=== PATIENT | male | born 1945 | race Caucasian/White ===

== ENCOUNTER → 2018-05-03 11:27 | Outpatient (CLI) | payer MEDICARE, OTHER, SELFPAY ==
--- NOTE | 2018-05-03 11:38 | EKG12_ITS ---
Test Reason : PRE OP Blood Pressure : / mmHG Vent. Rate : 064 BPM Atrial Rate : 064 BPM P-R Int : 212 ms QRS Dur : 116 ms QT Int : 414 ms P-R-T Axes : 035 -39 -01 degrees QTc Int : 427 ms Sinus rhythm with 1st degree A-V block Left axis deviation Abnormal ECG Confirmed by ASAEL GREEN, PARI ([id number]), marketing editor TUTU GARCIA ([id number] on 05/04/2018 4:01:50 PM Referred By: Tarik Wright Confirmed By:PARI VYAS MD
[2018-05-03 12:35] LABS: Hematocrit 43.2 % (40-54); Hemoglobin 14.7 g/dl (13.0-16.5); Mean Corpuscular Hgb 31.4 pg (27.0-32.0); Mean Corpuscular Volume 92.3 fL (80-94); Mean Platelet Vol. 12.2 fl (6.2-12.0); Platelet Count 152 K/mm3 (150-450); RBC Distribution Width CV 12.9 % (11.6-14.6); RBC Distribution Width SD 42.6 fl (35.1-43.9); Red Blood Count 4.68 M/mm3 (4.6-6.2); White Blood Count 5.7 K/mm3 (4.4-11.0)
[2018-05-03 12:37] LABS: Scan Indicated on CBC? Y/N NO
[2018-05-03 12:57] LABS: Anion Gap 8 (5-15); BUN 17 mg/dL (7-18); BUN/Creat Ratio 14.9 RATIO (10-20); Calcium,Total 9.1 mg/dL (8.5-10.1); Chloride 108 mmol/L (98-107); Creatinine, Serum 1.14 mg/dL (0.70-1.30); EST Glomerular Filtration Rate 67 mL/min (>60); Est Glom Filt Rate - Afr Amer 81 mL/min (>60); Glucose 84 mg/dL (74-106); Potassium 3.8 mmol/L (3.5-5.1); Sodium Level 143 mmol/L (136-145)
--- OUTSIDE RECORDS SUMMARY | 2018-07-08 07:41 | XMS RPT_ITS ---
:1945 Author Organization OHIP Care Team Providers Name Role Phone Tarik Wright Attending Unavailable Dylan Wrightun Referring Unavailable SANDOVALSIDER O Primary Care Unavailable Tarik Wright Attending Unavailable Adriana, Tarik Referring Unavailable SANDOVAL, CRISTIANO O Primary Care Unavailable Voss, Trina D Attending Unavailable Sandoval, Cristiano Primary Care Unavailable Voss, Trina D Admitting Unavailable Kiana, Trina D Admitting Unavailable Voss, Trina D Attending Unavailable Sandoval, Cristiano Primary Care Unavailable Voss, Trina D Admitting Unavailable Voss, Trina D Attending Unavailable Sandvoal, Cristiano Primary Care Unavailable Denisse, Neptali Attending Unavailable Sandoval, Cristiano Primary Care Unavailable Tourlas, Neptali Admitting Unavailable Jtlas, Neptali Attending Unavailable Sandoval, Cristiano Primary Care Unavailable Sandoval, Cristiano Attending Unavailable Sandoval, Cristiano Primary Care Unavailable Sandoval, Cristiano Admitting Unavailable Ángel Jones Attending Unavailable Sandoval, Cristiano Primary Care Unavailable SandovalSider Attending Unavailable Sandoval, Cristiano Primary Care Unavailable Sandoval, Cristiano Admitting Unavailable Sandoval, Cristiano Admitting Unavailable SandovalSider Attending Unavailable Sandoval, Cristiano Primary Care Unavailable Sandoval, Cristiano Primary Care Unavailable Rings, Charlie Admitting Unavailable Rings, Charlie Attending Unavailable Sandoval, Cristiano Attending Unavailable Sandoval, Cristiano Primary Care Unavailable Sandoval, Cristiano Attending Unavailable Sandoval, Cristiano Primary Care Unavailable Sandoval, Cristiano Admitting Unavailable Sandoval, Cristiano Attending Unavailable Sandoval, Cristiano Primary Care Unavailable ELI CORONA Attending Unavailable ELI CORONA Referring Unavailable TOURLAS, NEPTALI Admitting Unavailable RACHELL MILAN Attending Unavailable TOURLAS, NEPTALI Referring Unavailable TOURLAS, NEPTALI Primary Care Unavailable PROBLEMS PROBLEMS DATE TYPE CONDITION / CODE ATTENDING STATUS SOURCE 09/13/2017 Admitting Anesthesia of RACHELL MILAN [facility] diagnosis skin / Three Repository R20.0(ICD-10) 09/13/2017 Admitting Pain, unspecified RACHELL MILAN [facility] diagnosis / R52(ICD-10) Three Repository PROCEDURES PROCEDURES No Procedure Records FoundRESULTS RESULTS 12 LEAD ELECTROCARDIOGRAM Observed: 05/04/2018 Status: F Source: [place] 4:02 PM [facility] REPOSITORY [facility] Cardiovascular Services [address] [place] [id number] 12 Lead EKG 05/03/18 1142 MR#: [id number] Acct: [id number] Name: PK ELLISON Rep #: [id number] : 1945 72 From: Regan Vyas MD Attending Dr: Tarik Wright MD Status: REG CLI Ordering Dr: Tarik Wright MD Date: 05/03/18 Location: [facility] Sex: M C Admitted: Test Reason : PRE OP Blood Pressure : / mmHG Vent. Rate : 064 BPM Atrial Rate : 064 BPM P-R Int : 212 ms QRS Dur : 116 ms QT Int : 414 ms P-R-T Axes : 035 -39 -01 degrees QTc Int : 427 ms Sinus rhythm with 1st degree A-V block Left axis deviation Abnormal ECG Confirmed by ASAEL GREEN, REGAN ([id number]), production editor TUTU GARCIA ([id number]) on 05/04/2018 4:01:50 PM Referred By: Tarik Wright Confirmed By:REGAN VYAS MD 05/04/18 1601 Date Regan Vyas MD CC: Tarik Wright MD; Cristiano Sandoval MD Signed CBC-COMPLETE BLOOD CNT Collected: 05/03/2018 Status: F Source: [place] NO DIFF 11:52 AM [facility] REPOSITORY TYPE CODE TESTS RESULT OUT OF RANGE REFERENCE UNITS LAB L100.1000 4.4-11.0 K/mm3 Normal WBC 5.7 LAB L100.1200 4.6-6.2 M/mm3 Normal RBC 4.68 LAB L100.1300 13.0-16.5 g/dl Normal HGB 14.7 LAB L100.1400 40-54 % Normal HCT 43.2 LAB L100.1500 80-94 fL Normal MCV 92.3 LAB L100.1600 27.0-32.0 pg Normal MCH 31.4 LAB L100.1700 32-36 g/gl Normal MCHC 34.0 LAB L100.1810 11.6-14.6 % Normal RDW CV 12.9 LAB L100.1820 35.1-43.9 fl Normal RDW SD 42.6 LAB L100.1900 150-450 K/mm3 Normal PLT 152 LAB L100.2000 6.2-12.0 fl High MPV 12.2 Performed By: #### L100.0500 #### [facility] [address] [place], [address] BASIC METABOLIC Collected: 05/03/2018 Status: F Source: [place] PROFILE (BMP) 11:52 AM [facility] REPOSITORY TYPE CODE TESTS RESULT OUT OF RANGE REFERENCE UNITS LAB L501.0100 74-106 mg/dL Normal GLU 84 Result Comment: Please note revised GLUCOSE reference range effective 2017. LAB L501.1000 7-18 mg/dL Normal BUN 17 LAB L501.1100 0.70-1.30 mg/dL Normal CREAT,SERUM 1.14 Result Comment: The validity of the calculated GFR AND GFRAA in patients over 70 years has not been determined. Clinical correlation is essential. LAB L501.1110 >60 mL/min Normal EST GFR 67 Result Comment: Non- GFR Calc LAB L501.1115 >60 mL/min Normal EST GFR - AA 81 Result Comment: GFR Calc LAB L501.1300 10-20 RATIO Normal BUN/CRE 14.9 LAB L501.2200 8.5-10.1 mg/dL CA Normal 9.1 LAB L501.5300 136-145 mmol/L NA Normal 143 LAB L501.5600 3.5-5.1 mmol/L K Normal 3.8 LAB L501.5900 98-107 mmol/L High CL 108 LAB L501.6100 21.0-32.0 mmol/L Normal CO2 27.0 LAB L501.6200 5-15 Normal GAP 8 Performed By: #### L500.2500 #### [facility] [address] [place], [address] CTA CHEST Observed: 01/13/2018 Status: F Source: [place] 6:20 AM [facility] REPOSITORY Exam Date/Time: 01/13/2018 06:39 EDT Reason for Exam: Elevated D-Dimer Report STUDY: CTA Chest; 01/13/2018 6:39 am INDICATION: Elevated D-Dimer. COMPARISON: None. ACCESSION NUMBER(S): [id number] ORDERING CLINICIAN: Charlie Colvin TECHNIQUE: Axial CT images of the chest obtained after intravenous administration of 100 mL Omnipaque 350. Maximum intensity projection images were created and reviewed. FINDINGS: VESSELS: Aorta and pulmonary artery are normal caliber. Atherosclerotic calcifications in the aorta and coronary arteries. No pulmonary embolism. HEART: Normal size. No pericardial effusion. MEDIASTINUM AND MARYAM: No pathologically enlarged lymph nodes. Small hiatal hernia. LUNG, PLEURA, AND LARGE AIRWAYS: No pleural effusion. No pulmonary consolidation. 13 mm ground- glass focus in the left upper lobe. CHEST WALL AND LOWER NECK: Within normal limits. UPPER ABDOMEN: No acute abnormality of the partially visualized abdomen. BONES: Thoracic degenerative disc changes. IMPRESSION: No pulmonary embolism. Left upper lobe infectious or inflammatory infiltrate versus ground-glass nodule. Follow-up chest CT in 3-6 months is recommended to assess for resolution. FINAL REPORT Dictated: 01/13/2018 6:51 am Vickie Tovar MD Signed (Electronic Signature): 01/13/2018 6:51 am Signed by: Vickie Tovar MD Technologist: MATTY TROPONIN-I Collected: 01/13/2018 Status: F Source: [place] 5:55 AM [facility] REPOSITORY TYPE CODE TESTS RESULT OUT OF RANGE REFERENCE UNITS LAB [id number](LO .00-.03 ng/mL INC) Normal <.01 Troponin-I Performed By: #### [id number] #### [facility] [employer] [address] [place] [address] CBC W/ AUTO DIFF Collected: 01/13/2018 Status: F Source: [place] 3:07 AM [facility] REPOSITORY TYPE CODE TESTS RESULT OUT OF RANGE REFERENCE UNITS LAB 15341199(L 3.6-11.0 E3/mcL OINC) Normal WBC 5.4 LAB 88081240(L 3.90-6.10 E6/mcL OINC) Normal RBC 4.41 LAB 99898012(L 13.5-18.0 G/DL OINC) Normal Hgb 13.7 LAB 14157057(L 42.0-52.0 % OINC) Low Hct 41.0 LAB 69992986(L 11.5-14.5 % OINC) Normal RDW 13.7 LAB 82144373(L 27.0-31.0 pg OINC) High MCH 31.1 LAB 77245448(L 33.0-37.0 G/DL OINC) Normal MCHC 33.4 LAB 32904514(L 78.0-100.0 fL OINC) Normal MCV 93.0 LAB 56644467(L 7.4-11.0 fL OINC) Normal MPV 9.5 LAB 42630212(L 130-400 E3/mcL OINC) Normal Platelet 152 Performed By: #### [id number] #### [facility] [employer] [address] [place] [address] AUTO DIFF Collected: 01/13/2018 Status: F Source: [place] 3:07 AM [facility] REPOSITORY Order Comment: Order Added by Discern Expert. TYPE CODE TESTS RESULT OUT OF RANGE REFERENCE UNITS LAB 88504793(L 37.0-75.0 % OINC) Normal Neutro Auto 60.2 LAB 94789033(L 20.0-55.0 % OINC) Normal Lymph Auto 25.0 LAB 51139601(L 0.0-10.0 % OINC) High [place] Auto 10.1 LAB 93856740(L 0.0-11.0 % OINC) Normal Eos Auto 3.9 LAB 46477535(L 0.0-2.0 % OINC) Normal Basophil Auto 0.8 LAB 43290955(L 1.4-6.5 E3/mcL OINC) Normal Neutro 3.3 Absolute LAB 53035633(L 1.2-3.4 E3/mcL OINC) Normal Lymph Absolute 1.4 LAB 56084322(L 0.0-0.7 E3/mcL OINC) Normal [place] Absolute 0.5 LAB 84422031(L 0.0-0.7 E3/mcL OINC) Normal Eos Absolute 0.2 LAB 33063116(L 0.0-0.2 E3/mcL OINC) Normal Basophil 0.0 Absolute Performed By: #### [id number] #### [facility] [employer] [address] [place] [address] PT Collected: 01/13/2018 Status: F Source: [place] 3:07 AM [facility] REPOSITORY TYPE CODE TESTS RESULT OUT OF RANGE REFERENCE UNITS LAB 64179879(LO 1.0-1.2 INC) Normal INR 1.0 Result Comment: INR Recommended Therapeuptic Ranges: Prophylaxis/treatment of DVT and PE?2.0-3.0 Prevention of systemic embolism?.2.0-3.0 Mechanical prosthetic values?2.5-3.5 CRITICAL VALUES?.>4.0 LAB 05661340(LOINC) 11.6-14.6 second(s) Normal 12.7 PT Performed By: #### [id number] #### [facility] [address] [place] [address] CMP Collected: 01/13/2018 Status: F Source: [place] 3:07 AM [facility] REPOSITORY TYPE CODE TESTS RESULT OUT OF RANGE REFERENCE UNITS LAB 22520812(L 70-99 mg/dL OINC) High Glucose Lvl 107 LAB 26478083(L 7-18 mg/dL OINC) BUN Normal 13 LAB 5778987(LO 0.6-1.3 mg/dL INC) Normal Creatinine 0.8 LAB 28249480(L 8.4-10.2 mg/dL OINC) Calcium Normal Lvl 8.9 LAB 04920575(L 136-145 mEq/L OINC) Low Sodium Lvl 135 LAB 82966362(L 3.5-5.1 mEq/L OINC) Low Potassium Lvl 3.4 LAB 17874314(L 98-107 mEq/L OINC) Chloride Normal 101 LAB 12394602(L 24.0-30.0 mEq/L OINC) CO2 Normal 26.6 LAB 53414901(L 42-121 Int._Unit/ OINC) L Alk Phos Normal 55 LAB 88942904(L 0.2-1.0 mg/dL OINC) Bili Normal Total 0.5 LAB 82758409(L 3.2-5.0 G/DL OINC) Albumin Normal Lvl 3.7 LAB 60926640(L 6.4-8.3 G/DL OINC) Total Normal Protein 6.8 LAB 67356347(L 10-40 Int._Unit/ OINC) High L ALT 45 LAB 52538507(L 10-42 Int._Unit/ OINC) L AST Normal 33 LAB 39686757(L 5.4-30.0 ratio OINC) Normal BUN/Creat Ratio 16.2 LAB 56768040(L 2.0-4.0 G/DL OINC) Globulin Normal 3.1 LAB 07321246(L 1.1-1.9 ratio OINC) A/G Normal Ratio 1.2 Performed By: #### [id number] #### [facility] [employer] [address] [place], [place] [id number] EGFR Collected: 01/13/2018 Status: F Source: [place] 3:07 AM [facility] REPOSITORY Order Comment: Order added by Discern Expert. TYPE CODE TESTS RESULT OUT OF RANGE REFERENCE UNITS LAB 72650677(LO mL/min/1.73 INC) m2 Normal eGFR >60 LAB 31360761(LO mL/min/1.73 INC) m2 Normal eGFR AA >60 Performed By: #### [id number] #### [facility] [employer] [address] [place] [address] TROPONIN-I Collected: 01/13/2018 Status: F Source: [place] 3:07 AM [facility] REPOSITORY TYPE CODE TESTS RESULT OUT OF RANGE REFERENCE UNITS LAB 35459253(LO .00-.03 ng/mL INC) Normal .01 Troponin-I Performed By: #### [id number] #### [facility] [employer] [address] [place] [address] XR CHEST AP PORTABLE Observed: 01/13/2018 Status: F Source: [place] 3:05 AM [facility] REPOSITORY Exam Date/Time: 01/13/2018 03:17 EDT Reason for Exam: Difficulty breathing Report STUDY: XR Chest AP Portable; 01/13/2018 3:17 am INDICATION: Difficulty breathing. COMPARISON: None. ACCESSION NUMBER(S): [id number] ORDERING CLINICIAN: Charlie Colvin FINDINGS: The cardiac silhouette is normal in size. Low lung volume with mild bronchovascular crowding. Note made of azygos fissure. Left lung base atelectasis. No focal airspace consolidation or pleural effusion. No pneumothorax. The osseous structures are intact. IMPRESSION: No acute cardiopulmonary disease. FINAL REPORT Dictated: 01/13/2018 3:57 am Cornell Mcconnell MD Signed (Electronic Signature): 01/13/2018 3:57 am Signed by: Cornell Mcconnell MD Technologist: MATTY D-DIMER Collected: 01/13/2018 Status: F Source: [place] 2:52 AM [facility] REPOSITORY TYPE CODE TESTS RESULT OUT OF RANGE REFERENCE UNITS LAB 32622269(LO <=0.50 mg/L FEU INC) Abnormal Alert 1.18 D-Dimer Result Comment: Critical Result DIMER:1.18 Called to JACQUIE AKINS at: 05:52:49 by:POLY Read back by:JACQUIE AKINS Normal D Dimer level indicates no Deep Vein Thrombosis (DVT) or Pulmonary Embolism (PE). Elevated D Dimer level indicates additional studies and clinical assessments are indicated to conclude diagnosis of Deep Vein Thromobsis (DVT) or Pulmonary Embolism (PE). Performed By: #### [id number] #### [facility] [employer] [facility] [place] [address] IFOB OCCULT BLOOD Collected: 01/09/2018 Status: F Source: [place] 4:00 PM [facility] REPOSITORY TYPE CODE TESTS RESULT OUT OF RANGE REFERENCE UNITS LAB 586935054( LOINC) Normal Occult Negative Blood iFOB LAB CD:0527949 601(LOINC) Normal Occult Positive Bld iFOB Int Ctl Performed By: #### [id number] #### [facility] [employer] , PROGRESS Observed: 10/17/2017 Status: COMPLETED Source: [place] 4:09 PM [facility] REPOSITORY HNO ID: [id number] Author: Eli Corona Service: (none) Author Type: Physician Type: Progress Notes Filed: 10/17/2017 4:10 PM Note Text: Subjective HPI Pk Ellison is a 72 year old male who presents with sore on his ear.. Patient complains of intermittent sores and scabbing on the external ear. Patient states is worse presently on the right but does occur both ways. Patient has tried reformatting his pillows to avoid contact on his ears. Patient states is worse when he is sleeping. Patient states at times it seems to drain. Patient also complain of chronic nasal congestion which is also worse at night patient recently has been using CPAP and it makes it difficult to his nose is congested ROS General Weight loss: No Fatigue: No Night sweats:No Cardiac Chest pain:No Fast heart rate:No Swelling in the feet:No Respiratory Short of breath:No Cough:No Wheezing:No Gastrointestinal Nausea:No Vomiting:No Indigestion:No Past no history family history social history reviewed Objective Physical Exam PHYSICAL EXAM: There were no vitals taken for this visit. General: Patient is awake, alert, NAD. Voice is normal. Skin: normal Eyes: Extraocular motion and Gaze is normal. Ears: Right external auditory canal is normal. Scabbing external pinna right TMJ: normal. Right tympanic membranes normal. Left external auditory canal is normal. Left tympanic membrane normal. Nose: Septum is normal. Turbinates are normal. Nasopharynx:normal Oral Cavity/Oropharynx: Lips normal Dentition normal Tongue normal. Tonsils normal. Palate and uvula normal. Pharynx posterior normal Hypopharynx: Base of tongue normal Pyriform sinus normal. Larynx: Vocal cords normal. Epiglottis normal. Post cricoid normal. Salivary glands: Parotid normal. Submandibular and sublingual normal. Thyroid: normal. Lymphatic/Neck: Lymph nodes normal. Neurologic: Facial nerve normal. ASSESSMENT/PLAN: 1. Chronic rhinitis - ICD9: 472.0, ICD10: J31.0 (primary diagnosis) 2. 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 Patient complains of intermittent sores and scabbing on the external ear. Patient states is worse presently on the right but does occur both ways. Patient has tried reformatting his pillows to avoid contact on his ears. Patient states is worse when he is sleeping. Patient states at times it seems to drain. Patient also complain of chronic nasal congestion which is also worse at night patient recently has been using CPAP and it makes it difficult to his nose is congested ROS General Weight loss: No Fatigue: No Night sweats:No Cardiac Chest pain:No Fast heart rate:No Swelling in the feet:No Respiratory Short of breath:No Cough:No Wheezing:No Gastrointestinal Nausea:No Vomiting:No Indigestion:No Past no history family history social history reviewed Objective Physical Exam PHYSICAL EXAM: There were no vitals taken for this visit. General: Patient is awake, alert, NAD. Voice is normal. Skin: normal Eyes: Extraocular motion and Gaze is normal. Ears: Right external auditory canal is normal. Scabbing external pinna right TMJ: normal. Right tympanic membranes normal. Left external auditory canal is normal. Left tympanic membrane normal. Nose: Septum is normal. Turbinates are normal. Nasopharynx:normal Oral Cavity/Oropharynx: Lips normal Dentition normal Tongue normal. Tonsils normal. Palate and uvula normal. Pharynx posterior normal Hypopharynx: Base of tongue normal Pyriform sinus normal. Larynx: Vocal cords normal. Epiglottis normal. Post cricoid normal. Salivary glands: Parotid normal. Submandibular and sublingual normal. Thyroid: normal. Lymphatic/Neck: Lymph nodes normal. Neurologic: Facial nerve normal. ASSESSMENT/PLAN: 1. Chronic rhinitis - ICD9: 472.0, ICD10: J31.0 (primary diagnosis) 2. 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 right ear lesion drains. Present sx for 1 year. Has been to 3 other ENTs who found no problem. 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 Encounter Status:Closed by ELI CORONA MD on 10/17/17 XR HAND 3+ VIEWS Observed: 08/15/2017 Status: F Source: [place] LEFT 11:06 AM [facility] REPOSITORY Exam Date/Time: 08/15/2017 11:12 EDT Reason for Exam: thumb pain;Other (please specify) Report LEFT HAND 4 Views HISTORY: Thumb pain. FINDINGS: No fracture is seen. The metacarpals and phalanges are intact. The metacarpophalangeal and interphalangeal joints are normal. No radiopaque foreign body is seen in the soft tissues. IMPRESSION: No acute disease. No arthritic change. FINAL REPORT Dictated: 08/15/2017 3:44 pm Sean Morton MD Signed (Electronic Signature): 08/15/2017 3:44 pm Signed by: Sean Morton MD Technologist: [facility] XR HAND 3+ VIEWS Observed: 08/15/2017 Status: F Source: [place] RIGHT 11:06 AM [facility] REPOSITORY Exam Date/Time: 08/15/2017 11:12 EDT Reason for Exam: thumb pain;Other (please specify) Report RIGHT HAND-3 VIEWS: HISTORY: Thumb pain. FINDINGS: The metacarpophalangeal and interphalangeal joints are normal. The density of the bones is normal. There is a radiopaque density in the soft tissues of the distal phalanx of the fourth finger which may be a radiopaque foreign body, measuring about 8 mm in length and 3 mm in width. IMPRESSION: No acute abnormality. No fracture or dislocation. Radiopaque foreign body in the soft tissues of the distal phalanx of the fourth finger on the palmar aspect. FINAL REPORT Dictated: 08/16/2017 9:33 am Sean Morton MD Signed (Electronic Signature): 08/16/2017 9:33 am Signed by: Sean Morton MD Technologist: [facility] XR SPINE CERVICAL 4 Observed: 07/18/2017 Status: F Source: [place] OR 5 VIEWS 3:38 PM [facility] REPOSITORY Exam Date/Time: 07/18/2017 15:43 EDT Reason for Exam: Neck Pain Report CERVICAL SPINE-5 VIEWS HISTORY: Neck pain. No injury. FINDINGS: The cervical lordosis is maintained. There is slight narrowing of the C4-5 and C6-7 intervertebral disc spaces, more at the C6-7 level. The intervertebral neural foramina are normal in size. The odontoid process and atlantoaxial distance are normal. The facets are normal in alignment. IMPRESSION: Degenerative disc, at C6-C7 and to a lesser degree at C4-C5. No foraminal narrowing. FINAL REPORT Dictated: 07/18/2017 5:36 pm Sean Morton MD Signed (Electronic Signature): 07/18/2017 5:36 pm Signed by: Sean Morton MD Technologist: [facility] ALLERGIES ALLERGIES DATE TYPE / CODE NAME / CODE REACTION SEVERITY SOURCE Drug NO KNOWN [facility] Class/07480 ALLERGIES Main [place] 1003(SNOMED Repository CT) Drug NO KNOWN [facility] Class/98290 ALLERGIES [facility] 1003(SNOMED CT) Drug/256588 penicillins Shinto 003([facility] [place]) System Repository Drug/136251 Lipitor [id number] Shinto 003(OMED [facility]) System Repository Drug/804780 Vytorin [id number] Shinto 003([facility] [place]) System Repository ENCOUNTERS ENCOUNTERS ADMIT/DISCHARGE ACCOUNT NUMBER ADMITTING ENCOUNTER LOCATION SOURCE CLASS 05/10/2018 [id number] Ambulatory [facility] ding:[facility] Repository 05/04/2018 [id number] [facility] ding:[facility] rac Repository 05/03/2018 [id number] [facility] ding:[facility] Repository 04/04/2018/ [id number] Cristiano Sandoval [address] ding:[facility] System racRoom: Repository Room 1 03/20/2018/ [id number] Ambulatory [address] ding:[facility] System racRoom: Repository Room 2 01/13/2018/ [id number] Charlie Colvin [facility] 0[address] [facility] ding:[facility] EDRoom: WR System Repository 01/13/2018 [id number] Ambulatory [address] [facility] Repository 01/09/2018/ [id number] Cristiano Sandoval [address] ding:[facility] System Repository 01/09/2018 [id number] Ambulatory [address] [place] [address] Repository 12/30/2017/ [id number] Cristiano Sandoval Ambulatory [address] ding:[facility] System racRoom: Repository Room 3 11/16/2017/ [id number] Ambulatory [address] System ing:[facility] Repository nd 10/17/2017/ [id number] Ambulatory [address] Repository 09/23/2017/ [id number] Cristiano Sandoval [address] ding:[facility] System racRoom: Repository Room 2 09/13/2017/ [id number] DENISSE, Ambulatory Building:[address] Repository 08/15/2017/ [id number] Denisse, [address] ding: Health [facility] System Repository 08/10/2017/ [id number] Ambulatory [address] ding:[facility] System racRoom: Repository Room 1 07/29/2017/ [id number] Trina Bruno Ambulatory [facility] [address] [facility] ding[facility] Repository 07/18/2017/ [id number] Trina Bruno [facility] [address] [facility] ding:[facility] System Repository 07/11/2017/ [id number] Trina Bruno [facility] [address] [facility] ding:[facility] racRoom: Repository Room 1 PAYERS PAYERS ENCOUNTER GUARANTOR PAYER SUBSCRIBER SOURCE 05/10/2018 PK O Primary PK O Kiara [id number] Insurance:AETNA SR MCWILLIAMSDOB: Community [facility], SUPPLEMENT INSPolicy [id number] [place] [address]Uos: Number: Repository [id number] () Date:6409-57-44PJZHG [facility] SUPPLEMENT INSPO [address] [place] [address]PM: 05/10/2018 Secondary PK O Kiara Insurance:MEDICARE MCWILLDOLLYMSDOB: Community PART A BPolicy [id number] Hospital Number: Repository [id number] Date:2018-05-10 05/10/2018 Tertiary NOT GIVENUNK [place] Insurance:SELF PAY [facility] Hospital Number: Effective Repository Date:2018-05-10 05/04/2018 PK O Primary PK O Shinto ANÍBALLLIAMSDOB: Insurance:1500 MCWILLIAMSDOB: [facility] MEDICARE [id number] System [facility] Number: [facility] [place] [address]Yoo: Date:2018-05-04 [address]Zfd: [id number] ()Tel: ([phone]) Name:CD:[id number] O () (WP) [address] [address]KINLGLXUE, 000-0000 (WP) [place] [address]ZA: 05/04/2018 Secondary PK O Shinto Insurance:1500 AETNA CHASTITYB: [facility] LIFE INSURANCE [id number] System COMPANYPolicy Number: ROBERT BURTON, Repository Effective [place] Date:2018-05-0409457-0994Tym: 8162-02-94Ntdi Name:CD:[id number] O (HP)Tel: (000) [address] [address]RYNNMBXOC, 000-0000 () [place] [address]DS: 05/03/2018 PK O Primary PK O [place] [id number] Insurance:AETNA SR MCWILLIAMSDOB: [facility], SUPPLEMENT INSPolicy [id number] Hospital [place] [address]Onh: Number: Repository [id number] (HP) Date:7251-58-04HQSDI SENIOR SUPPLEMENT INSPO [address] [address]WJDXTCFKO, [place] [address]ZF: 05/03/2018 Secondary NOT GIVENUNK [place] Insurance:SELF PAY [facility] Number: Effective Repository Date:2018-05-03 04/04/2018 PK O Primary PK O Shinto MCILLLIAMSDOB: Insurance:1500 MCWILLIAMSDOB: [facility] MEDICARE [id number] System [facility] FR[facility]CHESCAPAUL A[facility] DE[facility] STATE SCHOOLPolic Number: [facility] [place], [facility] [place] [address]Ulr: Date:2018-03-2903274-8978Yoj: 0531-02-40Rtkc (HP)Tel: ([phone]) Name:CD:[id number] O (HP) (WP) [address] [address]DUXQXXZVP, 000-0000 (WP) [place] [address]EY: 04/04/2018 Secondary PK O Shinto Insurance:1500 AETNA MCRAJNILLIAMSDOB: [facility] LIFE INSURANCE [id number] System COMPANYPolicy Number: [facility], Repository [place] Date:2018-03-2939965-6[address]Mrk: 4013-59-39Kflf Name:CD:[id number] O (HP)Tel: (000) [address] [address]IUZPGJSBJ, 000-0000 (WP) [place] [address]SE: 03/20/2018 PK O Primary PK ELLISONDOB: Insurance:1500 MCILLLIAMSDOB: [facility] MEDICARE [id number] System [facility], PRIMARYPolicy Number: [facility] [place] [address]Xxj: Date:2018-03-20Tel: [id number] (HP)Tel: (409) Name:CD:[id number] O (HP) (WP) [address] [address]ZLGYBRGGP, 000-0000 (WP) [place] [address]VG: 03/20/2018 Secondary PK [place] Insurance:1500 AETNA INDIANADOB: [facility] LIFE INSURANCE [id number] System COMPANYPolicy Number: [facility] Effective [place] Date:2018-03-20Tel: [id number] Name:CD:[id number] O (HP)Tel: (000) [address] [address]ARHYLCTBO, 000-0000 (WP) [place] [address]MP: 01/13/2018 PK O Primary PK Zachary EspinosaShintochika ELLISONDOB: Insurance:MedicarePol [facility]ENTERIAMSD[facility]: [facility] icy Number: Effective [id number] System [facility], Date:2018-01-13 - [facility], [place]ository [place] 8029-11-98Ddmw [place] [address]Fhq: Name:CD:[id number] [address] [address]Wpb: [id number], [place] (HP)Tel: [phone]) [phone]: ([phone]) (HP) (WP) [phone] (WP) 01/13/2018 [facility] Insurance:COMMERCIAL MCILLLIAMSDOB: [facility] INSURANCEPolic [id number] System Number: Effective [facility], Repository Date:2018-01-13 - [place] 5403-87-51Qyrw [address]Pmj: Name:CD:[id number] [address] [place] [address] (HP)Tel: [phone]: (WP) [phone] 01/13/2018 [facility]:MedicarePol [facility]LLDOB: Hospitals icy Number: [id number] Repository [facility], [id number] [facility] [id number]: Date:Plan Name:[facility] [id number]: A (HP) (HP) 01/13/2018 [facility] Insurance:MedicarePol [facility]DOB: Hospitals icy Number: [id number] Repository [id number] [facility], Date:Plan Name:[facility] [id number]: B (HP) 01/13/2018 [facility] Insurance:CommercialSYMMES HOSPITALDOB: Hospitals olicy Number: [id number] Repository [id number] [facility], Date:Plan Name:[facility] [id number]: (HP) 01/09/[address] [facility] Insurance:MedicarePol [facility]LLDOB: [facility] icy Number: Effective [id number] System [facility], Date:2018-01-09 - [facility], Repository [place] 3976-13-60Fjly [place] [address]Fqu: Name:CD:[id number] [address] [address]Ggi: [id number], [place] (HP)Tel: [phone]) [phone]: ([phone]) (HP) (WP) [phone] (WP) 01/09/2018 [facility] Insurance:COMMERCIAL [facility]LLDOB: [facility] [id number] System Number: Effective [facility], Repository Date:2018-01-09 - [place] 9064-14-80Xteo [address]Zuq: Name:CD:[id number] [address] [place] [address] (HP)Tel: [phone]: (WP) [phone] 01/09/2018 [facility] CAreDOLLYNMB: Insurance:MedicarePol [facility]: [facility] icy Number: [id number] Repository [facility], [id number] [place], [place] [id number]: Date:Plan Name:[facility] [id number]: A (HP) (HP) 01/09/2018 [facility] Insurance:MedicarePol [facility]: Hospitals icy Number: [id number] Repository [id number] [facility], Date:Plan Name:[facility] [id number]: B (HP) 01/09/2018 [facility] Insurance:CommercialUMASS MEMORIAL MEDICAL CENTERB: [facility] olicy Number: [id number] Repository [id number] [facility], Date:Plan Name:Health [place] [id number]: (HP) 12/30/2017 [facility]: [facility]:1500 MCILLLBAYDOB: [facility] MEDICARE [id number] System [facility], [facility] Number: [place] [facility] [place] [address]Uqt: Date:2017-11-29 [address]Pip: 1971-78-05Nwik (HP)Tel: ([phone]) Name:CD:[id number] O (HP) (WP) [address] [address]GCDFEJZIS, 000-0000 (WP) [place] [address]RV: 12/30/2017 Secondary PK O Shinto Insurance:1500 AETNA SCOTDOB: [facility] LIFE INSURANCE [id number] System COMPANYPolicy Number: [facility], [facility] Effective [place] Date:2017-11-29 [address]Vwj: 9514-49-93Hmiq Name:CD:[id number] (HP)Tel: (000) [address] [address]QIOYWMPWH, 000-0000 (WP) [place] [address]TB: 11/16/2017 PK O Primary PK O Shinto MCINDIANADOB: Insurance:1500 [facility] SYSTEMJEREMIDOB: [facility] MEDICARE [id number] System [facility], [facility]ol[facility] Number: [facility], [facility] [place] [id number]: Effective [place] [id number]: Date:2017-11-01 (HP)Tel: ([phone]) [phone] (HP) (WP) Name:CD:[id number] O 000-0000 (WP) [address] [address]HZBCZHHCM, [place] [address]HF: 11/16/2017 Secondary PK O Shinto Insurance:1500 AETNA SCOTDOB: [facility] LIFE INSURANCE [id number] System COMPANYPolicy Number: JONES EAKLY, Repository Effective [place] [id number]: Date:2017-11-01 - 4662-43-79Have (HP)Tel: (000) Name:CD:[id number] 000-0000 (WP) [address] [place] [address]NU: 09/23/2017 PK O Primary PK [facility] CenterShintoHCA Florida Clearwater EmergencyDOLLYNMDOB: Insurance:1500 [facility] LOWELLDOB: [facility] MEDICARE [id number] System CAROLINA EAKLY, PRIMARYPolicy Number: JONES EAKLY, Repository [place] [id number]: Effective [place] [id number]: Date:2017-09-23 - (HP)Tel: ([phone]) [phone] (HP) (WP) Name:CD:[id number] O 000-0000 (WP) [address] [address]IXNMNDRDI, [place] [address]HU: 09/23/2017 Secondary PK Mendieta Insurance:1500 AETNA [facility] SYSTEMCECILIABAYB: [facility] LIFE INSURANCE [id number] System COMPANYPolicy Number: CAROLINA EAKLY, Repository Effective [place] [id number]: Date:2017-09-23 - 6263-75-71Tmax (HP)Tel: (000) Name:CD:[id number] 000-0000 (WP) [address] [place] [address]SX: 09/13/2017 PK O Primary [facility]B: Insurance:MEDICARELawrence F. Quigley Memorial HospitalB: [facility] Repository icy Number: [id number] CAROLINA EAKLY, [id number] [place] [address]Roh: Date:3793-23-93WBZ [place] [address]Npg: J15 PART A CLAIMSPO (HP) [address] [address]AAZOETYRB, (HP) [place] [address]EJ: 09/13/2017 Secondary [facility] Insurance:AETNAPolicy MCWILLIAMSDOB: Three Repository Number: [id number] [facility], Date:[address] [place] [address] [place] [address]GP: 08/15/2017 PK O Primary PK Espinosaaritan [facility] SYSTEMCECILIADOLLYMSDOB: Insurance:MedicarePol [facility] CENTERMSDOB: [facility] icy Number: Effective [id number] System [facility], Date:2017-08-15 - [facility], Repository [place] [id number]: [id number] [place] [id number]: Name:CD:[id number] [address]OX (HP)Tel: ([phone]) 418272E532335LYEJGUPHWK, [place] () (WP) [id number]: (WP) [phone] 08/15/2017 Secondary PK Zachary Shinto Insurance:COMMERCIAL MCILLLIAMSDOB: [facility] INSURANCEPolicy [id number] System Number: Effective [facility], Repository Date:2017-08-15 - [place] [id number]: 9817-26-61Tnkj Name:CD:[id number] BOX (HP)Tel: 000 [place], [place] 000-0000 (WP) [address]DN: 08/10/2017 PK O Primary PK Mendieta [facility] SYSTEMJEREMIDOB: Insurance:1500 MCWILLIAMSDOB: [facility] MEDICARE [id number] System [facility], PRIMARYPolicy Number: [facility], Repository [place] [id number]: Effective [place] [phone]: Date:2017-08-10 - (HP)Tel: [phone] (HP) (WP) Name:CD:[id number] O 000-0000 (WP) [address] [address]OCCSRVMTC, [place] [address]AG: 08/10/2017 Secondary PK O Shinto Insurance:1500 AETNA [facility] SYSTEMCECILIAIAMSDOB: [facility] AND LIFE [id number] System INSURANCE [facility], [facility] COMPANYPolicy Number: [place] [id number]: Effective Date:2017-08-10 - (HP)Tel: 000) [phone] 000-0000 (WP) Name:CD:[id number] [address] [address]MA: 07/29/2017 PK O Primary PK O Shinto WILLIAMSDOB: Insurance:MedicarePol [facility] CENTERIAMSDOB: [facility] icy Number: Effective [id number] System [facility], Date:2017-07-20 - [facility], Repository [place] [id number]: 4124-05-24Gdzb [place] [id number]: Name:CD:[id number] BOX (HP)Tel: ([phone]) [id number], [place] (HP) (WP) [id number]: (WP) [phone] 07/29/2017 Secondary PK O Shinto Insurance:COMMERCIAL MCWILLIAMSDOB: [facility] INSURANCEPolicy [id number] System Number: Effective [facility], Repository Date:2017-07-20 - [place] [id number]: 4618-06-34Tugn Name:CD:[id number] BOX (HP)Tel: (000) [address], [place] 000-0000 (WP) [address]VG: 07/18/2017 PK O Primary PK Zachary Mendieta RAJNIJEREMIDOB: Insurance:MedicareBournewood HospitalDOB: [facility] icy Number: Effective [id number] System [facility], Date:2017-07-18 - [facility], Repository [place] [address]Dga: 4709-97-93Rxbb [place] [id number]: Name:CD:[id number] BOX (HP)Tel: [phone]) [phone], [place] (HP) (WP) [id number]: (WP) [phone] 07/18/2017 Secondary PK Mendieta Insurance:COMMERCIAL [facility] LOWELLDOB: [facility] CenterPolicy [id number] System Number: Effective [facility], Repository Date:2017-07-18 - [place] [id number]: [id number] Name:CD:[id number] BOX (HP)Tel: (000) 5007BreSterling, [place] 000-0000 (WP) [address]EY: 07/11/2017 PK O Primary PK Zachary Mendieta RAJNIJEREMIDOB: Insurance:[address] [place], [place] [address]B: [facility] MEDICARE [id number] System [facility], [facility]ANSPolicy Number: [facility] [place] [id number]: Effective [place] [id number]: Date:2017-07-06 - (HP)Tel: [phone]) [phone] (HP) (WP) Name:CD:[id number] O [phone] (WP) [address] [address]CRCEFBUDJ, [place] [address]QJ: 07/11/2017 Secondary [facility] Insurance:1500 AETNA CHASTITYB: [facility] LIFE INSURANCE [id number] System COMPANYPolicy Number: Robby DELAROSA [facility] [id number]: Date:2017-07-06 5747-13-61Eigb ()Tel: ([phone]) Name:CD:[id number] [phone] () [address] [address]CRETYECP, [place] [address]RE:
--- OUTSIDE RECORDS SUMMARY | 2018-07-08 07:41 | XMS RPT_ITS | Summary of Care ---
:1945 Author Organization [facility] Address [address] [id number] Care Team Providers Name Role Phone Neptali Salcedo MD Primary Care Provider Reason for Referral EMG/NCS (Routine) Status Reason Specialty Diagnoses / Referred By Referred To Procedures Contact Contact Closed Specialty Services Neurology Diagnoses Numbness Pain Ludwig Salcedo Gubert Lee, Required/Patient's MD PETER Gunderson [facility] [address] [address] Phone: Fax: Reason for Visit EMG/NCS (Routine) Status Reason Specialty Diagnoses / Referred By Referred To Procedures Contact Contact Closed Specialty Services Neurology Diagnoses Numbness Pain Ludwig Salcedo Gubert Lee, Required/Patient's MD PETER Gunderson [facility] [address] [facility] [address] [place] [address] Phone: Fax: Encounter Details Date Type Department Care Team Description 09/13/2017 Procedure visit [facility] Neptali Salcedo MD [address] [id number] [phone] Carpal tunnel syndrome, bilateral (Primary Dx); Neurological Nazia Munroe MD [address] [place] [address] [phone] Numbness; Physicians Pain [address] [facility] Medical Office Building, 2nd [place] [address] Allergies No Known Allergiesas of this encounter Medications Prescription Sig. Disp. Refills Start Date End Date Status rosuvastatin (CRESTOR) 20 06/25/2016 Active MG tablet aspirin 81 MG EC tablet Take 81 mg by Active mouth daily. as of this encounter Active Problems Problem Noted Date Carpal tunnel syndrome, bilateral 09/13/2017 Shoulder impingement 09/14/2016 History of total left knee replacement 09/14/2016 Social History Tobacco Use Types Packs/Day Years Used Date Former Smoker 0.5 Sex Assigned at Date Recorded Not on file as of this encounter Progress Notes Nazia Munroe MD - 09/13/2017 8:09 AM EDTProcedures ELECTROMYOGRAPHY (Nerve Conduction Study/Needle EMG) Brief History: Patient with 2-3 months of bilateral upper extremity burning pain. He also has neck pain but no diabetes Plan: The study is design to evaluate for radiculopathy, plexopathy, entrapment neuropathy, median or ulnar neuropathy. Indication, risk, side effects, and alternatives were explained. Patient agreed to proceed. Please request raw data if needed. EMG Summary: The bilateral median motor nerve conduction study showed prolonged distal latency, normal amplitude and decrease conduction velocity. The bilateral median sensory nerve conduction study showed prolonged distal latency and decrease amplitude. The bilateral ulnar motor and sensory nerve conduction studies was normal. The bilateral radial sensory nerve conduction study were normal. Needle EMG of the above muscle showed no abnormal spontaneous activity. Normal motor unit action potentials and recruitment patterns were seen. Impression: This is an abnormal EMG. 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 There is NO electrodiagnostic evidence of bilateral cervical radiculopathy, brachial plexopathy or ulnar neuropathy at this time.in this encounter Plan of Treatment Health Maintenance Due Date Last Done Comments COLONOSCOPY 1945 HEPATITIS C SCREENING 1945 TETANUS EVERY 10 YR 1945 ZOSTER VACCINE 2006 ABDOMINAL AORTIC ULTRASOUND 2011 PNEUMOCOCCAL VACCINE AGE 65+ (1 of 2 - PCV13) 2011 SEQUENTIAL INFLUENZA VACCINE (Season Ended) 2017 as of this encounter Results Ambulatory referral to Neurology (09/13/2017) Narrative EMG 08/2017 in this encounter Visit Diagnoses Diagnosis Carpal tunnel syndrome, bilateral - Primary Carpal tunnel syndrome Numbness Disturbance of skin sensation Pain Generalized pain
== END ==
PROVIDERS: Family Provider Family Medicine; PCP Family Medicine; Referring Provider Otolaryngology Otolaryngology/Facial Plastic Surgery; Visit Provider Otolaryngology Otolaryngology/Facial Plastic Surgery
DX: Z01.818 Encounter for other preprocedural examination (principal)
CPT/HCPCS: 36415; 80048; 85027; 93005

== ENCOUNTER → 2018-05-10 15:49 | Outpatient (CLI) | payer MEDICARE, OTHER, SELFPAY ==
--- NOTE | 2018-05-09 14:44 | SEP_PTH ---
PATIENT: PK ELLISON LOC: DB U#:[id number] AGE/SX: 79/M ROOM: RE05/10/[address]: Dr. Tarik Wright MD : 1945 BED: DIS: SPEC #: [id number] RECD: 05/10/18 15:26 STATUS: MARY KAY JAX #: [id number] CHAVA: 05/09/18 14:[address]: Tarik Wright DEPT: SURGICAL PATHOLOGY RECD BY: Juancho Herndon ENTERED: 05/11/18 08:18 SP TYPE: SEPTUM OTHR DR: Dr. Cristiano Almanza MD [facility] Tissues: Nasal septum, NOS Procedures: Decalcification bone/plaque Surgery Specimen Level III HEADER OPERATION: Septoplasty, resection inferior turbinates PRE-OP DIAGNOSIS: Nasal congestion, obstructive sleep apnea, deviated nasal septum, hypertrophy of nasal turbinates TISSUE SUBMITTED: Septum MICROSCOPIC DIAGNOSIS Septum, septoplasty: Fragments of sclerotic bone and cartilage; clinically deviated nasal septum. CE:gracy 05/18/18 MICROSCOPIC DESCRIPTION Slides are reviewed. GROSS DESCRIPTION Received is one container labeled with the patient's name and not further designated. The specimen consists of multiple irregular and elongated fragments of farr-white bone and cartilage that in aggregate measure 3 x 2 x 0.2 cm. The specimen is totally submitted in one cassette after decalcification. / AM:gracy 05/11/18 TC:5 CPT: 13860, 54547
--- OUTSIDE RECORDS SUMMARY | 2018-07-12 18:30 | XMS RPT_ITS ---
:1945 Author Organization OHIP Care Team Providers Name Role Phone Tarik Wright Attending Unavailable Dylan Wrightun Referring Unavailable SANDOVAL, CRISTIANO O Primary Care Unavailable Tarik Wright Attending Unavailable Adriana Tarik Referring Unavailable SANDOVAL, CRISTIANO O Primary Care Unavailable ELI CORONA Attending Unavailable ELI CORONA Referring Unavailable TOURLAS, NEPTALI Admitting Unavailable RACHELL MILAN Attending Unavailable TOURLAS, NEPTALI Referring Unavailable TOURLAS, NEPTALI Primary Care Unavailable WoodstockMaryah D Attending Unavailable Sandoval, Cristiano Primary Care Unavailable [place], Trina D Admitting Unavailable Kiana, Trina D Admitting Unavailable Kiana, Trina D Attending Unavailable Sandoval, Cristiano Primary Care Unavailable Kiana, Trina D Admitting Unavailable Kiana, Trina D Attending Unavailable Sandoval, Cristiano Primary Care Unavailable Tourlas, Neptali Attending Unavailable Sandoval, Cristiano Primary Care Unavailable Tourlas, Neptali Admitting Unavailable Tourlas, Neptali Attending Unavailable Sandoval, Cristiano Primary Care Unavailable Sandoval Cristiano Attending Unavailable Sandoval, Cristiano Primary Care Unavailable Sandoval, Cristiano Admitting Unavailable Ángel Jones Attending Unavailable Sandoval, Cristiano Primary Care Unavailable Sandoval, Cristiano Attending Unavailable Sandoval, Cristiano Primary Care Unavailable Sandoval, Cristiano Admitting Unavailable Sandoval, Cristiano Admitting Unavailable Sandoval, Cristiano Attending Unavailable Sandoval, Cristiano Primary Care Unavailable Sandoval, Cristiano Primary Care Unavailable Rings, Charlie Admitting Unavailable Rings, Charlie Attending Unavailable Sandoval, Cristiano Attending Unavailable Sandoval, Cristiano Primary Care Unavailable Sandoval, Cristiano Attending Unavailable Sandoval, Cristiano Primary Care Unavailable Sandoval, Cristiano Admitting Unavailable Sandoval, Cristiano Attending Unavailable Sandoval, Cristiano Primary Care Unavailable PROBLEMS PROBLEMS DATE TYPE CONDITION / CODE ATTENDING STATUS SOURCE 09/13/2017 Admitting Anesthesia of [facility] diagnosis skin / Three Repository R20.0(ICD-10) 09/13/2017 Admitting Pain, unspecified [facility] diagnosis / R52(ICD-10) Three Repository PROCEDURES PROCEDURES No Procedure Records FoundRESULTS RESULTS 12 LEAD ELECTROCARDIOGRAM Observed: 05/04/2018 Status: F Source: [place] 4:02 PM [facility] REPOSITORY [facility] Cardiovascular Services [address] [place] [address] 12 Lead EKG 05/03/18 1142 MR#: [id number] Acct: [id number] Name: PK ELLISON Rep #: [id number] : 1945 72 From: Regan Vyas MD Attending Dr: Tarik Wright MD Status: REG CLI Ordering Dr: Tarik Wright MD Date: 05/03/18 Location: [facility] Sex: M C Admitted: Test Reason : [...] Abnormal ECG Confirmed by ASAEL GREEN, REGAN ([id number]), associate entertainment editor TUTU GARCIA ([id number]) on 05/04/2018 4:01:50 PM Referred By: Tarik Wright Confirmed By:REGAN VYAS MD 05/04/18 1601 Date Regan Vyas MD CC: Tarik Wright MD; Cristiano Sandoval MD Signed CBC-COMPLETE BLOOD CNT Collected: 05/03/2018 Status: F Source: [place] NO DIFF 11:52 AM [facility] REPOSITORY TYPE CODE TESTS RESULT OUT OF [...] MPV 12.2 Performed By: #### L100.0500 #### [facility] [address] [place], [address] BASIC METABOLIC Collected: 05/03/2018 Status: F Source: [place] PROFILE (BMP) 11:52 AM [facility] REPOSITORY TYPE CODE TESTS RESULT OUT OF [...] GAP 8 Performed By: #### L500.2500 #### [facility] [address], [address] CTA CHEST Observed: 01/13/2018 Status: F Source: YAZ[place] 6:20 AM [facility] REPOSITORY Exam Date/Time: 01/13/2018 06:39 EDT Reason for Exam: Elevated D-Dimer Report STUDY: CTA Chest; 01/13/2018 6:39 am INDICATION: Elevated D-Dimer. COMPARISON: None. ACCESSION NUMBER(S): [id number] ORDERING CLINICIAN: Charlie Colvin TECHNIQUE: Axial CT [...] MATTY TROPONIN-I Collected: 01/13/2018 Status: F Source: [place] 5:55 AM [facility] REPOSITORY TYPE CODE TESTS RESULT OUT OF RANGE REFERENCE UNITS LAB [id number](LO .00-.03 ng/mL INC) Normal <.01 Troponin-I Performed By: #### [id number] #### EUGENIA [employer] [address] [place] [address] CBC W/ AUTO DIFF Collected: 01/13/2018 Status: F Source: [place] 3:07 AM [facility] REPOSITORY TYPE CODE TESTS RESULT OUT OF RANGE REFERENCE UNITS LAB [id number](L 3.6-11.0 E3/mcL OINC) Normal WBC 5.4 LAB 08980386(L 3.90-6.10 E6/mcL OINC) Normal RBC 4.41 LAB 85159483(L 13.5-18.0 G/DL OINC) Normal Hgb 13.7 LAB 88832997(L 42.0-52.0 % OINC) Low Hct 41.0 LAB 40124043(L 11.5-14.5 % OINC) Normal RDW 13.7 LAB 00402258(L 27.0-31.0 pg OINC) High MCH 31.1 LAB 20868886(L 33.0-37.0 G/DL OINC) Normal MCHC 33.4 LAB 44643009(L 78.0-100.0 fL OINC) Normal MCV 93.0 LAB 78870760(L 7.4-11.0 fL OINC) Normal MPV 9.5 LAB 22420815(L 130-400 E3/mcL OINC) Normal Platelet 152 Performed By: #### [id number] #### EUGENIA [employer] [address] [place] [address] AUTO DIFF Collected: 01/13/2018 Status: F Source: YAZ[place]I 3:07 AM [facility] REPOSITORY Order Comment: Order Added by Discern Expert. TYPE CODE TESTS RESULT OUT OF RANGE REFERENCE UNITS LAB [id number](L 37.0-75.0 % OINC) Normal Neutro Auto 60.2 LAB 18513059(L 20.0-55.0 % OINC) Normal Lymph Auto 25.0 LAB 61078675(L 0.0-10.0 % OINC) High [place] Auto 10.1 LAB 42189146(L 0.0-11.0 % OINC) Normal Eos Auto 3.9 LAB 04494360(L 0.0-2.0 % OINC) Normal Basophil Auto 0.8 LAB 22946538(L 1.4-6.5 E3/mcL OINC) Normal Neutro 3.3 Absolute LAB 59077450(L 1.2-3.4 E3/mcL OINC) Normal Lymph Absolute 1.4 LAB 54981458(L 0.0-0.7 E3/mcL OINC) Normal [place] Absolute 0.5 LAB 94181617(L 0.0-0.7 E3/mcL OINC) Normal Eos Absolute 0.2 LAB 42287511(L 0.0-0.2 E3/mcL OINC) Normal Basophil 0.0 Absolute Performed By: #### [id number] #### EUGENIA [employer] [address] [place] [address] PT Collected: 01/13/2018 Status: F Source: YAZIDI 3:07 AM [facility] REPOSITORY TYPE CODE TESTS RESULT OUT OF RANGE REFERENCE UNITS LAB 02348486(LO 1.0-1.2 INC) Normal INR 1.0 Result Comment: INR Recommended Therapeuptic Ranges: Prophylaxis/treatment of DVT and PE?2.0-3.0 Prevention of systemic embolism?.2.0-3.0 Mechanical prosthetic values?2.5-3.5 CRITICAL VALUES?.>4.0 LAB 36576954(LOINC) 11.6-14.6 second(s) Normal 12.7 PT Performed By: #### [id number] #### EUGENIA [employer] Automated Subsection [address] [place] [address] CMP Collected: 01/13/2018 Status: F Source: YAZIDI 3:07 AM [facility] REPOSITORY TYPE CODE TESTS RESULT OUT OF RANGE REFERENCE UNITS LAB 03982851(L 70-99 mg/dL OINC) High Glucose Lvl 107 LAB 22729049(L 7-18 mg/dL OINC) BUN Normal 13 LAB 3276609(LO 0.6-1.3 mg/dL INC) Normal Creatinine 0.8 LAB 78840379(L 8.4-10.2 mg/dL OINC) Calcium Normal Lvl 8.9 LAB 28192550(L 136-145 mEq/L OINC) Low Sodium Lvl 135 LAB 44865759(L 3.5-5.1 mEq/L OINC) Low Potassium Lvl 3.4 LAB 08468379(L 98-107 mEq/L OINC) Chloride Normal 101 LAB 34494628(L 24.0-30.0 mEq/L OINC) CO2 Normal 26.6 LAB 54454252(L 42-121 Int._Unit/ OINC) L Alk Phos Normal 55 LAB 78596188(L 0.2-1.0 mg/dL OINC) Bili Normal Total 0.5 LAB 13446375(L 3.2-5.0 G/DL OINC) Albumin Normal Lvl 3.7 LAB 08586922(L 6.4-8.3 G/DL OINC) Total Normal Protein 6.8 LAB 36438233(L 10-40 Int._Unit/ OINC) High L ALT 45 LAB 52571089(L 10-42 Int._Unit/ OINC) L AST Normal 33 LAB 39796050(L 5.4-30.0 ratio OINC) Normal BUN/Creat Ratio 16.2 LAB 37822214(L 2.0-4.0 G/DL OINC) Globulin Normal 3.1 LAB 37873727(L 1.1-1.9 ratio OINC) A/G Normal Ratio 1.2 Performed By: #### [id number] #### EUGENIA [employer] [address] [place], [place] [address] EGFR Collected: 01/13/2018 Status: F Source: YAZIDI 3:07 AM [facility] REPOSITORY Order Comment: Order added by Discern Expert. TYPE CODE TESTS RESULT OUT OF RANGE REFERENCE UNITS LAB 51250432(LO mL/min/1.73 INC) m2 Normal eGFR >60 LAB 45469079(LO mL/min/1.73 INC) m2 Normal eGFR AA >60 Performed By: #### [id number] #### EUGENIA [employer] [address] [place] [address] TROPONIN-I Collected: 01/13/2018 Status: F Source: YAZIDI 3:07 AM [facility] REPOSITORY TYPE CODE TESTS RESULT OUT OF RANGE REFERENCE UNITS LAB 63960055(LO .00-.03 ng/mL INC) Normal .01 Troponin-I Performed By: #### [id number] #### EUGENIA [employer] [address] [place] [address] XR CHEST AP PORTABLE Observed: 01/13/2018 Status: F Source: YAZIDI 3:05 AM [facility] REPOSITORY Exam Date/Time: 01/13/2018 03:17 EDT Reason for Exam: Difficulty breathing Report STUDY: XR Chest AP Portable; 01/13/2018 3:17 am INDICATION: Difficulty breathing. COMPARISON: None. ACCESSION NUMBER(S): [id number] ORDERING CLINICIAN: Charlie Colvin FINDINGS: The cardiac [...] MATTY D-DIMER Collected: 01/13/2018 Status: F Source: YAZIDI 2:52 AM [facility] REPOSITORY TYPE CODE TESTS RESULT OUT OF RANGE REFERENCE UNITS LAB 44647570(LO <=0.50 mg/L FEU INC) Abnormal Alert 1.18 [...] or Pulmonary Embolism (PE). Performed By: #### [id number] #### EUGENIA Hematology Automated Subsection [facility] [place] [address] IFOB OCCULT BLOOD Collected: 01/09/2018 Status: F Source: YAZIDI 4:00 PM [facility] REPOSITORY TYPE CODE TESTS RESULT OUT OF RANGE REFERENCE UNITS LAB 010065302( LOINC) Normal Occult Negative Blood iFOB LAB CD:3901900 601(LOINC) Normal Occult Positive Bld iFOB Int Ctl Performed By: #### [id number] #### EUGENIA Misc Micro SubSection , PROGRESS Observed: 10/17/2017 Status: COMPLETED Source: [place] 4:09 PM [facility] [place] REPOSITORY HNO ID: [id number] Author: Eli [place] Service: (none) Author Type: [...] MD CNOV Observed: 10/17/2017 Status: COMPLETED Source: [place] 3:15 PM [facility] REPOSITORY Office Visit (OTOLMM) SCOTPK Zachary ([id number]) 1945 M Date Time Provider Department 10/17/17 3:15 PM ELI OCRONA During your visit today, we recorded the [...] Satnam [place] MD Referring Provider: ELI CORONA [[id number]] Allergies As of Date: 10/17/2017 Noted Allergy [...] 3+ VIEWS Observed: 08/15/2017 Status: F Source: YAZIDI LEFT 11:06 AM [facility] REPOSITORY Exam Date/Time: 08/15/2017 11:12 EDT Reason [...] pm Signed by: Sean Morton MD Technologist: [facility] XR HAND 3+ VIEWS Observed: 08/15/2017 Status: F Source: YAZID[place] RIGHT 11:06 AM [facility] REPOSITORY Exam Date/Time: 08/15/2017 11:12 EDT Reason [...] am Signed by: Sean Morton MD Technologist: [facility] XR SPINE CERVICAL 4 Observed: 07/18/2017 Status: F Source: YAZIDI OR 5 VIEWS 3:38 PM [facility] [...] Signature): 07/18/2017 5:36 pm Signed by: Sean Morotn MD Technologist: [facility] ALLERGIES ALLERGIES DATE TYPE / CODE NAME / CODE REACTION SEVERITY SOURCE Drug NO KNOWN [facility] Class/12670 ALLERGIES [place] 1003(SNOMED Repository CT) Drug NO KNOWN [facility] Class/65984 ALLERGIES [facility] 1003(SNOMED CT) Drug/410073 penicillins [facility] 003([facility]) System Repository Drug/589734 Lipitor [id number] [facility] 003(OMED [facility] CT) System Repository Drug/767795 Vytorin 8859038684 [facility] 003([facility] CT) System Repository ENCOUNTERS ENCOUNTERS ADMIT/DISCHARGE ACCOUNT NUMBER ADMITTING ENCOUNTER LOCATION SOURCE CLASS 05/10/2018 [id number] Ambulatory [facility] ding:LABSPEC Repository 05/04/2018 [id number] [facility] ding:[facility] System rac Repository 05/03/2018 [id number] [facility] ding:[facility] Repository 04/04/2018/ [id number] Cristiano Sandoval [address] ding:[facility] System racRoom: Repository Room 1 03/20/2018/ [id number] Ambulatory [address] ding:[facility] System racRoom: Repository Room 2 01/13/2018/ [id number] Charlie Colvin [facility] [address] [facility] ding:[facility] EDRoom: WR System Repository 01/13/2018 [id number] Ambulatory [address] [facility] Repository 01/09/2018/ [id number] Cristiano Sandoval [address] ding:[facility] BANEY System Repository 01/09/2018 [id number] Ambulatory [address] [place] [address] Repository 12/30/2017/ [id number] Cristiano Sandoval Ambulatory [address] ding:[facility] System racRoom: Repository Room 3 11/16/2017/ [id number] Ambulatory [address] System ing:AMUAshla Repository nd 10/17/2017/ [id number] Ambulatory [address] Repository 09/23/2017/ [id number] Cristiano Sandoval [address] ding:[facility] System racRoom: Repository Room 2 09/13/2017/ [id number] DENISSE, Ambulatory Building:[address] Repository 08/15/2017/ [id number] Denisse, [address] ding: Health BANEY System Repository 08/10/2017/ [id number] Ambulatory [address] ding:[facility] System racRoom: Repository Room 1 07/29/2017/ [id number] Trina Bruno Ambulatory [facility] [address] [facility] ding[facility] B System Repository 07/18/2017/ [id number] Trina Bruno [facility] [address] [facility] ding:[facility] System Repository 07/11/2017/ [id number] Trina Bruno [facility] 0[address] [facility] ding:[facility] racRoom: Repository Room 1 PAYERS PAYERS ENCOUNTER GUARANTOR PAYER SUBSCRIBER SOURCE 05/10/2018 PK O Primary PK O Kiara [id number] Insurance:AETNA SR MCWILLIAMSDOB: Community [facility], SUPPLEMENT INSPolicy [id number] [place] [address]Uct: Number: Repository [id number] () Date:[id number] [facility] SUPPLEMENT INSPO [address] [place] [address]MX: 05/10/2018 Secondary PK O Kiara Insurance:MEDICARE MCWILLDOLLYMSDOB: Community PART A BPolicy [id number] Hospital Number: Repository [id number] Date:2018-05-10 05/10/2018 Tertiary NOT GIVENUNK [place] Insurance:SELF PAY [facility] Hospital Number: Effective Repository Date:2018-05-10 05/04/2018 PK O Primary PK O [facility] ANÍBALLLIAMSDOB: Insurance:1500 MCWILLIAMSDOB: [facility] MEDICARE [id number] System [facility] Number: [facility] [place] [address]Hum: Date:2018-05-04 [address]Cec: [id number] ()Tel: ([phone]) Name:CD:[id number] O () (WP) [address] [address]LCTDBRJIY, 000-0000 (WP) [place] [address]FI: 05/04/2018 Secondary PK O [facility] Insurance:1500 AETNA CHASTITYB: [facility] LIFE INSURANCE [id number] System COMPANYPolicy Number: ROBERT BUR[place], Repository Effective [place] Date:2018-05-0401062-8[address]Nqu: [id number] Name:CD:[id number] O (HP)Tel: (000) [address] [address]XQKJQVHPL, 000-0000 () [place] [address]QW: 05/03/2018 PK O Primary KP O [place] [id number] Insurance:AETNA SR MCWILLIAMSDOB: [facility], SUPPLEMENT INSPolicy [id number] Hospital [place] [address]Hzt: Number: Repository [id number] (HP) Date:7796-40-40KZQNC SENIOR SUPPLEMENT INSPO [address] [address], [place] [address]EZ: 05/03/2018 Secondary NOT GIVENUNK Kiara Insurance:SELF PAY [facility] Number: Effective Repository Date:2018-05-03 04/04/2018 PK O Primary PK O [facility] MCDELLIAMSDOB: Insurance:1500 MCWILLIAMSDOB: [facility] MEDICARE [id number] System [place] [facility]ITAL[facility] Number: [facility], [facility] [place] [address]Ueo: Date:2018-03-2981836-2267Kus: [id number] (HP)Tel: (030) Name:CD:[id number] O (HP) (WP) [address] [address]DYYQYJNZL, 000-0000 (WP) [place] [address]YT: 04/04/2018 Secondary PK O [facility] Insurance:1500 AETNA MCRAJNILLIAMSDOB: [facility] LIFE INSURANCE [id number] System COMPANYPolicy Number: [facility], Repository Effective [place] Date:2018-03-2974846-69[address]Ycy: [id number] Name:CD:[id number] O (HP)Tel: (000) [address] [address]PNJFTCCFC, 000-0000 (WP) [place] [address]WZ: 03/20/2018 PK O Primary PK ELLISONDOB: Insurance:1500 MCDELLIAMSDOB: [facility] MEDICARE [id number] System [facility], PRIMARYPolicy Number: [facility] [place] [address]Kmv: Date:2018-03-20Tel: [id number] (HP)Tel: ([phone]) Name:CD:[id number] O (HP) (WP) [address] [address]YVMFGVAWX, 000-0000 (WP) [place] [address]SB: 03/20/2018 Secondary PK [place] Insurance:1500 AETNA INDIANADOB: [facility] LIFE INSURANCE [id number] System COMPANYPolicy Number: [id number] Effective [place] Date:2018-03-20Tel: [id number] Name:CD:[id number] O (HP)Tel: (000) [address] [address]GSCVLHUAE, 000-0000 (WP) [place] [address]ER: 01/13/2018 PK O Primary PK Zachary EspinosaAnabaptistchika ELLISONDOB: Insurance:MedicarePol [facility], INCIAMSDOB: [facility] icy Number: Effective [id number] System [facility], Date:2018-01-13 - [facility], Repository [place] 4198-06-01Lpwy [place] [address]Ixu: Name:CD:[id number] [address] [address]Yqv: [id number], [place] (HP)Tel: [phone]) [phone]: (678) (HP) (WP) [phone] (WP) 01/13/2018 [facility] Insurance:COMMERCIAL MCDELLIAMSDOB: [facility] INSURANCEPolic [id number] System Number: Effective [facility], Repository Date:2018-01-13 - [place] [id number] [address]Eyc: Name:CD:[id number] [address] [place] [address] (HP)Tel: [phone]: (WP) [phone] 01/13/2018 [facility]MedicarePol [facility] icy Number: [id number] Repository [facility], [id number] [facility], [place] [id number]: Date:Plan Name:[facility] [id number]: A (HP) (HP) 01/13/2018 [facility] Insurance:MedicarePol [facility] Hospitals icy Number: [id number] Repository [id number] [facility], Date:Plan Name:[facility] [id number]: B (HP) 01/13/2018 [facility] Insurance:CommercialWORCESTER RECOV[facility] CENTER AND HOSPITALDOB: Hospitals olicy Number: [id number] Repository [id number] [facility], Date:Plan Name:[facility] [phone]: (HP) 01/09/2018 [facility] Center[facility]FLB: Insurance:MedicarePol [facility]: [facility] icy Number: Effective [id number] System [facility], Date:2018-01-09 - [facility], Repository [place] 7645-72-39Rxap [place] [address]Ins: Name:CD:[id number] [address]Ahw: [id number], [place] (HP)Tel: [phone]) [phone]: ([phone]) (HP) (WP) [phone] (WP) 01/09/2018 [facility] Insurance:COMMERCIAL [facility]: [facility] INS[facility]EDep[facility] [id number] System Number: Effective [facility], Repository Date:2018-01-09 - [place] [id number] [address]Yxy: Name:CD:[id number] [address] [place] [address] (HP)Tel: [phone]: (WP) [phone] 01/09/2018 [facility] HospitalDOLLYFLB: Insurance:MedicarePol [facility]B: [facility] icy Number: [id number] Repository [facility], [id number] [place] [address]Fgu: Date:Plan Name:[facility] [id number]: A (HP) (HP) 01/09/2018 [facility] Insurance:MedicarePol [facility]ITALB: Hospitals icy Number: [id number] Repository [id number] [facility], Date:Plan Name:[facility] [id number]: B (HP) 01/09/2018 [facility] Insurance:CommercialGOOD SAMARITAN MEDICAL CENTERB: [facility] olicy Number: [id number] Repository [id number] [facility], Date:Plan Name:Health [place] [id number]: (HP) 12/30/2017 [facility] Center[facility]: Insurance:1500 MCDELLBAYDOB: [facility] MEDICARE [id number] System [facility], [facility]Policy Number: [place] [facility] [place] [address]Pbv: Date:2017-11-29 [address]Noo: 4544-13-13Uqnh (HP)Tel: (419) Name:CD:[id number] O (HP) (WP) [address] [address]GKNODCUAK, 000-0000 (WP) [place] [address]FT: 12/30/2017 Secondary PK O An[facility]ist Insurance:1500 AETNA SCOTDOB: [facility] LIFE INSURANCE [id number] System COMPANYPolicy Number: [facility], [facility] Effective [place] Date:2017-11-29 [address]Pks: [id number] Name:CD:[id number] (HP)Tel: (000) [address] [address]TGCVBFVPP, 000-0000 (WP) [place] [address]UD: 11/16/2017 PK O Primary PK O [facility] MCINDIANADOB: Insurance:1500 [facility] HOSPITALJEREMIDOB: [facility] MEDICARE [id number] System [facility], [facility]ITALPolicy Number: [facility], [facility] [place] [id number]: Effective [place] [id number]: Date:2017-11-01 (HP)Tel: (252) [phone] (HP) (WP) Name:CD:[id number] O 000-0000 (WP) [address] [address]GMBYZTBFF, [place] [address]GL: 11/16/2017 Secondary PK O [facility] Insurance:1500 AETNA SCOTDOB: [facility] LIFE INSURANCE [id number] System COMPANYPolicy Number: JONES [facility]ENT, Repository Effective [place] [phone]: Date:2017-11-01 - 8421-12-51Rbzo (HP)Tel: (000) Name:CD:[id number] 000-0000 (WP) [address]RTGLOKDUT[address] [place] [address]BO: 09/23/2017 PK O Primary PK [facility] CenterAnabaptistHCA Florida Osceola HospitalDOLLYFLDOB: Insurance:1500 [facility]ITALD[facility]: [facility] MEDICARE [id number] System [place], PRIMARYPolicy Number: JONES [place], Repository [place] [id number]: Effective [place] [id number]: Date:2017-09-23 - (HP)Tel: ([phone]) [phone] (HP) (WP) Name:CD:[id number] O 000-0000 (WP) [address]PUBHTPZGG, [place] [address]DG: 09/23/2017 Secondary PK [place] Insurance:1500 AETNA [facility]IAL HOSPITALCECILIABAYB: [facility] LIFE INSURANCE [id number] System COMPANYPolicy Number: [place], Repository Effective [place] [id number]: Date:2017-09-23 - [id number] (HP)Tel: (000) Name:CD:[id number] 000-0000 (WP) [address] [address]KVDAKTIBC[address] [place] [address]ZQ: 09/13/2017 PK O Primary [facility] HospitalB: Insurance:MEDICAREWorcester Recovery Center and HospitalB: [facility] Repository icy Number: [id number] [place], [id number] [facility] [address]Ogt: Date:7739-05-15FYD [place] [address]Ovm: J15 PART A CLAIMSPO (HP) [address] [address]AAISHTSDC, (HP) [place] [address]TV: 09/13/2017 Secondary [facility] Insurance:AETNAPolicy MCWILLIAMSDOB: Three Repository Number: [id number] [facility], Date:[address] [place] [address] [place] [address]JP: 08/15/2017 PK O Primary PK [facility]ITALCECILIADOLLYMSDOB: Insurance:MedicarePol [facility]: [facility] icy Number: Effective [id number] System [facility], Date:2017-08-15 - [facility], Repository [place] [id number]: [id number] [place] [phone]: Name:CD:[id number] BOX (HP)Tel: [phone], [place] () (WP) [phone]: (WP) [phone] 08/15/2017 Secondary PK Zachary Anabaptist Insurance:COMMERCIAL MCDELLIAMSDOB: [facility] INSURANCEPolicy [id number] System Number: Effective [facility], Repository Date:2017-08-15 - [place] [id number]: [id number] Name:CD:[id number] BOX (HP)Tel: 000 [place], [place] 000-0000 (WP) [phone]: 08/10/2017 PK O Primary PK Mendieta [facility]ITALJEREMIDOB: Insurance:1500 MCWILLIAMSDOB: [facility] MEDICARE [id number] System [facility], PRIMARYPolicy Number: [facility], Repository [place] [id number]: Effective [place] [id number]: Date:2017-08-10 - (HP)Tel: [phone] (HP) (WP) Name:CD:[id number] O 000-0000 (WP) [address] [address]QUZ, [place] [address]IX: 08/10/2017 Secondary PK O Anabaptist Insurance:1500 AETNA [facility]ITALCECILIAIAMSDOB: [facility] AND LIFE [id number] System INSURANCE [facility], [facility] COMPANYPolicy Number: [place] [id number]: Effective Date:2017-08-10 - (HP)Tel: 000) [phone] 000-0000 (WP) Name:CD:[id number] [address] [address]TL: 07/29/2017 PK O Primary PK O Anabaptist WILLIAMSDOB: Insurance:MedicarePol [facility], INCIAMSDOB: [facility] icy Number: Effective [id number] System [facility], Date:2017-07-20 - [facility], Repository [place] [id number]: [id number] [place] [id number]: Name:CD:[id number] BOX (HP)Tel: [phone]) [phone], [place] (HP) (WP) [phone]: (WP) [phone] 07/29/2017 Secondary PK O Anabaptist Insurance:COMMERCIAL MCWILLIAMSDOB: [facility] INSURANCEPolicy [id number] System Number: Effective [facility], Repository Date:2017-07-20 - [place] [id number]: [id number] Name:[id number] BOX (HP)Tel: [phone]) [address], [place] 000-0000 (WP) [address]CC: 07/18/2017 PK O Primary PK Zachary Mendieta RAJNIJEREMIDOB: Insurance:[facility]areHebrew Rehabilitation CenterDOB: [facility] icy Number: Effective [id number] System [facility], Date:2017-07-18 - [facility], Repository [place] [id number]: [id number] [place] [id number]: Name:CD:[id number] BOX (HP)Tel: [phone] [phone], [place] (HP) (WP) [phone]: (WP) [phone] 07/18/2017 Secondary PK Mendieta Insurance:COMMERCIAL [facility] [id number] System Number: Effective [facility], Repository Date:2017-07-18 - [place] [id number]: [id number] Name:[id number] BOX (HP)Tel: [phone]) [address]BreSouth [place], [place] 000-0000 (WP) [address]KM: 07/11/2017 PK O Primary PK Zachary Mendieta RAJNIJEREMIDOB: Insurance:[address] [place], [place] [address]B: [facility] MEDICARE [id number] System [facility], [facility]Policy [facility]: [id number] [place] [id number]: Effective [place] [id number]: Date:2017-07-06 - (HP)Tel: [phone] (HP) (WP) Name:CD:[id number] O [phone] (WP) [address] [address], [place] [address]JX: 07/11/2017 Secondary [facility] Insurance:1500 AETNA CHASTITYB: [facility] LIFE INSURANCE [id number] System COMPANYPolicy Number: Robby DELAROSA [facility] [id number]: Date:2017-07-06 [id number] ()Tel: (660) Name:CD:[id number] [phone] () [address] [address]VVTMVGMBM, [place] [address]QZ:
== END ==
PROVIDERS: Family Provider Family Medicine; PCP Family Medicine; Referring Provider Otolaryngology Otolaryngology/Facial Plastic Surgery; Visit Provider Otolaryngology Otolaryngology/Facial Plastic Surgery
DX: J34.2 Deviated nasal septum (principal); J34.3 Hypertrophy of nasal turbinates; G47.33 Obstructive sleep apnea (adult) (pediatric)
CPT/HCPCS: 88304; 88311

== ENCOUNTER → 2019-01-09 15:58 | Outpatient (CLI) | payer MEDICARE, OTHER, SELFPAY ==
--- NOTE | 2019-01-09 10:09 | LES_PTH ---
PATIENT: PK ELLISON LOC: DB U#:[id number] AGE/SX: 79/M ROOM: RE01/09/[address]: Dr. Tarik Wright MD : 1945 BED: DIS: SPEC #: [id number] RECD: 01/09/19 15:06 STATUS: MARY KAY MARTINEZKendrick #: [id number] CHAVA: 01/09/19 10:[address]: Tarik Wright DEPT: SURGICAL PATHOLOGY RECD BY: Missy Andrade ENTERED: 01/10/19 09:09 SP TYPE: Lesion OTHR DR: Dr. Cristiano Almanza MD [facility] Tissues: Pinna of ear Procedures: Surgery Specimen Level IV HEADER OPERATION: Excision of lesion, right pinna PRE-OP DIAGNOSIS: Ear lesion, right pinna TISSUE SUBMITTED: Lesion, right pinna (suture on anterior margin) MICROSCOPIC DIAGNOSIS Right pinna ear lesion, biopsy: Actinic keratosis with mild atypia. Minimal chronic inflammation, solar elastosis, parakeratosis and hyperkeratosis. Negative for malignancy. See comment. RC:gracy 01/11/19 COMMENT Multiple levels are examined. Correlation with clinical findings and appropriate follow up are necessary. Case has been reviewed in consultation with Dr. Shultz who concurs with the above diagnosis. IDC:AM MICROSCOPIC DESCRIPTION Slides are reviewed. GROSS DESCRIPTION Received is one container labeled with the patient's name and not further designated. The specimen consists of a farr-white skin ellipse measuring 1 x 0.2 x 0.1 cm. The specimen is oriented by a suture identifying the anterior margin. Anterior margin is inked black and posterior margin is inked blue. The specimen is submitted entirely in one cassette. It will be sectioned at the time of embedding. / RC:gracy 01/10/19 TC:5 CPT: 21783
== END ==
PROVIDERS: Family Provider Family Medicine; PCP Family Medicine; Referring Provider Otolaryngology Otolaryngology/Facial Plastic Surgery; Visit Provider Otolaryngology Otolaryngology/Facial Plastic Surgery
DX: L98.9 Disorder of the skin and subcutaneous tissue, unspecified (principal)
CPT/HCPCS: 88304; 88305